=== PATIENT | female | born 1965 | race Caucasian/White ===

== ENCOUNTER → 2024-05-26 | Day surgery (SDC) | payer BC ==
[~2024-05-26] MED LIST: DEXAMETHASONE SOD PHOS 10 MG/1 ML VIAL ONE; DEXMEDETOMIDINE HCL 200 MCG/2 ML VIAL ONE; FUROSEMIDE40 MG PO; LEVOTHYROXINE75 MCG PO; LIDOCAINE HCL 2% LOCAL INJ 5 ML SDV VIAL INJ ONE; MELOXICAM7.5 MG PO; NEURONTIN400 MG PO; OFLOXACIN 0.3% (OTIC SOL) 5 ML BTL ONE; OMEPRAZOLE40 MG PO; ONDANSETRON HCL INJ 2MG/ML 2ML 2 MG/ML VIAL ONE; PROPOFOL IV EMULSION 10 MG/ML 20 ML VIAL ONE; SEVOFLURANE INHAL SOLN 250 ML PEN BTL ONE; WELLBUTRIN XL300 MG PO
[2024-05-26] MEDS: LACTATED RINGER'S 1,000 ML ONE (05:48)
[2024-05-26 09:03] VITALS: BP 127/77; PULSE 73; RESP 18; O2SAT 96
== END | disposition home or self-care (01) ==
LOC: OR 05:33
PROVIDERS: ATTEND Otolaryngology Otolaryngology/Facial Plastic Surgery
DX: H65.22 Chronic serous otitis media, left ear (principal); H91.22 Sudden idiopathic hearing loss, left ear; H93.12 Tinnitus, left ear; G47.33 Obstructive sleep apnea (adult) (pediatric); E03.9 Hypothyroidism, unspecified; E66.01 Morbid (severe) obesity due to excess calories; K21.9 Gastro-esophageal reflux disease without esophagitis; Z88.1 Allergy status to other antibiotic agents; Z88.8 Allergy status to other drugs, medicaments and biological substances; Z79.1 Long term (current) use of non-steroidal anti-inflammatories (NSAID); Z79.899 Other long term (current) drug therapy
CPT/HCPCS: 69436; 93005; J1100; J2001; J2405; J2704; J7121